=== PATIENT | female | born 1985 | race Caucasian/White ===

== ENCOUNTER 2019-08-31 11:42 | Emergency (ER) | payer OTHER, SELFPAY ==
[2019-08-31 12:10] VITALS: BP 125/83; PULSE 70; RESP 20; TEMP 36.7; O2SAT 100
--- NOTE | 2019-08-31 13:21 | ED.GENADULT ---
HPI - General Adult General Chief complaint: Dental/Oral Stated complaint: tooth pain Time Seen by Provider: 08/31/19 13:22 Source: patient and RN notes reviewed Mode of arrival: ambulatory Limitations: no limitations History of Present Illness HPI narrative: 34-year-old female presents with complaints of LT lower dental pain for the past 3 days. Pain has increased over the last 24 hours with pain shooting towards LT ear. 600 mg of Ibuprofen last dose 05:00 a.m. without relief. Denies any drainage. No fever. LT jaw swelling. No neck swelling. No limitation with speaking or swallowing. Has history of dental caries. Has being seen a dentist was in the process of getting teeth removed and fitted for dentures but dentist stop taking her insurance. Salome says she is awaiting her appointment in [facility] with new dentist. No dental trauma. No oral lesions. Exacerbating factors consist of chewing on LT side, eating and drinking cold items. Relieving factors not eating. No dentures or bridges. Denies fever or chills. Tolerating liquids well. Salome denies being , LMP unknown due to Depo-provera injections. Some parts of this dictation were generated by voice recognition software and may contain typographical and/or grammatical inaccuracies. Related Data Home Medications Medication Instructions Recorded Confirmed bupropion HCl [Wellbutrin SR] 300 mg PO BID 07/05/19 08/31/19 lisinopril 20 mg PO DAILY 07/05/19 08/31/19 adalimumab [Humira Pen] 40 mg SUBCUT ONCE 08/31/19 08/31/19 fluoxetine 20 mg PO DAILY 08/31/19 08/31/19 folic acid 1 mg PO DAILY 08/31/19 08/31/19 medroxyprogesterone [Depo-Provera] 150 mg IM [id number] 08/31/19 08/31/19 methotrexate 2.5 mg WEEKLY 08/31/19 08/31/19 Allergies Allergy/AdvReac Type Severity Reaction Status Date / Time tramadol Allergy Severe Siezure Verified 08/31/19 12:38 Review of Systems Review of Systems: Narrative: CONSTITUTIONAL: Denies fever, chills, sweats. EYES: Denies visual changes, redness, discharge. ENT: Denies rhinorrhea, congestion, sore throat, otalgia. Complains of LT lower dental pain and LT jaw swelling. CARDIOVASCULAR: Denies chest pain, palpitations, edema. RESPIRATORY: Denies dyspnea, wheezing, cough. GASTROINTESTINAL: Denies abdominal pain, nausea, vomiting, diarrhea. GENITOURINARY: Denies dysuria, hematuria, abnormal discharge. SKIN: Denies rash or itching. MUSCULOSKELETAL: Denies acute back pain, joint pain, or myalgia. NEUROLOGIC: Denies numbness or focal weakness. PSYCHIATRIC: Denies anxiety or depression. All systems reviewed & are unremarkable except as noted in HPI and below. [facility] Past Medical History Medical History (Updated 09/01/19 @ 00:00 by [facility] Dadonald) Anxiety Depression HTN (hypertension) Psoriasis Rheumatoid arthritis Surgical History Surgical History (Updated 08/31/19 @ 13:43 by BHAVIK Saldivar) No significant past surgical history Family History Family History Other Heart disease Hypertension Social History Social History (Updated 08/31/19 @ 13:43 by BHAVIK Saldivar) Smoking status: Current every day smoker Tobacco type: cigarettes Alcohol intake: never Substance use: never Living arrangements: with family Gender identity (if verbalized by the patient): Female Comments At time of signature, agree with nurse past medical, surgical, social, and family history. There is no relevant family history pertinent to the presenting complaint. Exam Narrative: Exam Narrative: GENERAL: This is a well-nourished, well-developed patient, in no apparent distress. Talks in full sentences ans ambulates with steady gait without dyspnea. HEAD: normocephalic, atraumatic. EYES: PERRL. Sclera clear/white. Vision is grossly intact. EARS: External ears normal, auditory canals clear and without drainage, TMs normal without perforation. Hearing gr
== END 2019-08-31 13:45 | disposition home or self-care (01) ==
PROVIDERS: Emergency Provider Nurse Practitioner Family
DX: K08.89 Other specified disorders of teeth and supporting structures (principal); K02.9 Dental caries, unspecified; F17.210 Nicotine dependence, cigarettes, uncomplicated; I10 Essential (primary) hypertension; M06.9 Rheumatoid arthritis, unspecified; F41.9 Anxiety disorder, unspecified; F32.9 Major depressive disorder, single episode, unspecified
CPT/HCPCS: 99213; G0463

== ENCOUNTER 2020-02-10 17:23 | Emergency (ER) | payer OTHER, SELFPAY ==
[2020-02-10 17:56] VITALS: BP 163/101; PULSE 61; RESP 22; TEMP 36.1; O2SAT 100
--- NOTE | 2020-02-10 18:01 | ED.GENADULT ---
HPI - General Adult General Chief complaint: Dental/Oral Stated complaint: Tooth Time Seen by Provider: 02/10/20 18:07 Source: patient Mode of arrival: ambulatory Limitations: no limitations History of Present Illness HPI narrative: 34-year-old female patient presents to the [facility] with complaints of frontal dental pain that has been bothering her significantly for the past 4 days and is gotten increasingly worse today. Patient states that she had a calcium deficiency when she was and states that after she gave she started having her teeth fall out. Patient states that she was in the process of having all of her teeth pulled and had dentures placed when COVID started. Patient states that the front tooth on the right side is really been bothering her causing a lot of pain. Patient states she is tried Orajel as well as [id number] Tylenol and ibuprofen without success. Patient states she has tried to get into the [employer] [facility] however they advised her to call back on Sunday for that is when they take emergency appointments. Related Data Home Medications Medication Instructions Recorded Confirmed bupropion HCl [Wellbutrin SR] 300 mg PO BID 07/05/19 02/10/20 lisinopril 20 mg PO DAILY 07/05/19 02/10/20 adalimumab [Humira Pen] 40 mg SUBCUT ONCE 08/31/19 02/10/20 fluoxetine 20 mg PO DAILY 08/31/19 02/10/20 folic acid 1 mg PO DAILY 08/31/19 02/10/20 medroxyprogesterone [Depo-Provera] 150 mg IM [id number] 08/31/19 02/10/20 methotrexate 2.5 mg WEEKLY 08/31/19 08/31/19 Allergies Allergy/AdvReac Type Severity Reaction Status Date / Time tramadol Allergy Severe Siezure Verified 02/10/20 17:52 Review of Systems Review of Systems: Narrative: CONSTITUTIONAL: Denies fever, chills, or sweats. EYES: Denies visual changes, redness, or discharge. ENT: Denies rhinorrhea, congestion, sore throat, or otalgia. Positive frontal dental pain x4 days CARDIOVASCULAR: Denies chest pain, palpitations, or edema. RESPIRATORY: Denies cough or dyspnea. GASTROINTESTINAL: Denies abdominal pain, nausea, vomiting, or diarrhea. GENITOURINARY: Denies dysuria or hematuria. SKIN: Denies rash or itching. MUSCULOSKELETAL: Denies back pain, joint pain, or myalgia. NEUROLOGIC: Denies headache, numbness, or weakness. PSYCHIATRIC: Denies anxiety or depression. [facility] Past Medical History Medical History Anxiety Depression HTN (hypertension) Psoriasis Rheumatoid arthritis Surgical History Surgical History No significant past surgical history Family History Family History Other Heart disease Hypertension Social History Social History Smoking status: Current every day smoker Tobacco type: cigarettes Alcohol intake: never Substance use: never Gender identity (if verbalized by the patient): Female Comments At the time of my signature I agree with nursing past medical history, surgical, social, and family history. There is no relevant family history pertinent to the presenting complaint. Exam Narrative: Exam Narrative: GENERAL: Well-appearing, well-nourished, and in no acute distress. HEAD: Normocephalic, atraumatic. EYES: PERRLA and EOMI. ENT: Nares clear, no rhinorrhea or epistaxis. Mucous membranes moist. Patient has multiple broken teeth noted throughout the mouth with both teeth in the front broken and significant swelling and erythema around the right frontal tooth. No obvious abscess noted at this time. NECK: Supple. No lymphadenopathy CHEST: Clear to auscultation. No respiratory distress. HEART: Regular rate and rhythm. No murmur heard. Normal peripheral pulses. ABDOMEN: Soft, nontender, nondistended, normal active bowel sounds. EXTREMITIES: Normal range of motion. No edema. SKIN
== END 2020-02-10 18:16 | disposition home or self-care (01) ==
PROVIDERS: Emergency Provider Nurse Practitioner Family
DX: K02.9 Dental caries, unspecified (principal); F41.9 Anxiety disorder, unspecified; F32.9 Major depressive disorder, single episode, unspecified; I10 Essential (primary) hypertension; F17.200 Nicotine dependence, unspecified, uncomplicated
CPT/HCPCS: 99213; G0463

== ENCOUNTER 2020-07-08 16:23 | Emergency (ER) | payer OTHER, SELFPAY ==
--- NOTE | ~2020-07-08 | XR_ITS ---
EXAMINATION: XR chest 2V DATE: 07/08/2020 16:59 INDICATION: Fever and cough TECHNIQUE: PA and lateral views of the chest are obtained. COMPARISON: None available FINDINGS: The lungs are free of acute opacities. There is no pleural effusion or pneumothorax. The ca rdiomediastinal silhouette is normal. There is mild thoracic spondylosis. IMPRESSION: 1. No acute cardiopulmonary abnormality. Reviewed, dictated and finalized at location A. NTORY CONTROL MANAGER
[2020-07-08 16:35] VITALS: BP 157/108; PULSE 87; RESP 32; TEMP 38.4; O2SAT 94
--- NOTE | 2020-07-08 17:05 | ED.URI ---
HPI - URI/Sore Throat General Chief Complaint: Upper Respiratory Infection Stated Complaint: sore throat cough sob Time Seen by Provider: 07/08/20 16:57 Source: patient and RN notes reviewed Mode of arrival: ambulatory Limitations: no limitations History of Present Illness HPI Narrative: Patient presents today complaining of a 2-week history of cough and shortness of breath. She was seen on June 24 at [facility] ER where chest x-ray was performed and she was diagnosed with a viral chest infection and discharged home with a 5-day course of prednisone. States a Covid test at that time was negative. Reports that while she was taking the prednisone her symptoms improved, but since 1224 her symptoms have significantly worsened. She has started wheezing severely and cannot catch her breath. Denies fever at home, but was 101.1 upon presentation at urgent care today. Reports her cough is productive with thick green sputum. States she has been using an albuterol inhaler that is not helping. Denies history of asthma or COPD. She is a smoker, but states she has not been able to smoke for approximately 1 week due to severe shortness of breath. MD elicited complaint: cough and other (Shortness of breath) Related Data Home Medications Medication Instructions Recorded Confirmed lisinopril 20 mg PO DAILY 07/05/19 07/08/20 adalimumab [Humira Pen] 40 mg SUBCUT ONCE 08/31/19 07/08/20 Allergies Allergy/AdvReac Type Severity Reaction Status Date / Time tramadol Allergy Severe Siezure Verified 07/08/20 16:49 Review of Systems Review of Systems: Narrative: CONSTITUTIONAL: Denies body aches, fever, chills, or sweats. EYES: Denies visual changes, redness, or discharge. ENT: Denies rhinorrhea, congestion, sore throat, or otalgia. CARDIOVASCULAR: Denies chest pain, palpitations, or edema. RESPIRATORY:+ Cough, shortness of breath, wheezing GASTROINTESTINAL: Denies abdominal pain, nausea, vomiting, or diarrhea. GENITOURINARY: Denies dysuria or hematuria. SKIN: Denies rash, itching, or wounds. MUSCULOSKELETAL: Denies back pain, joint pain, or myalgia. NEUROLOGIC: Denies headache, numbness, tingling, or weakness. PSYCH: Denies depression or anxiety. [facility] Past Medical History Medical History (Updated 07/08/20 @ 18:11 by Shellie Hernandez, BHAVIK, ) Anxiety Depression HTN (hypertension) Psoriasis Rheumatoid arthritis Surgical History Surgical History No significant past surgical history Family History Family History Other Heart disease Hypertension Social History Social History Smoking status: Current every day smoker Tobacco type: cigarettes Alcohol intake: never Substance use: never Gender identity (if verbalized by the patient): Female Comments At time of signature, I have reviewed and agree with nursing past medical, surgical, social and family history unless otherwise noted. Please see nursing chart for further information. There is no relevant family history pertinent to the presenting complaint Exam Narrative: Exam Narrative: GENERAL: Ill-appearing, well-nourished. HEAD: Normocephalic, atraumatic. EYES: EOMI. No redness or drainage. Conjunctivae normal. ENT: Mucous membranes pink and moist. Nares clear. No rhinorrhea. TMs normal bilaterally. Throat normal. Uvula midline. NECK: Normal AROM. Supple. No lymphadenopathy. CHEST: Inspiratory and expiratory wheezing. Unable to speak in complete sentences. Labored. Diminished in the bases. HEART: Regular rate and rhythm. No murmur appreciated. Normal peripheral pulses. MUSCULOSKELETAL: No bony tenderness. EXTREMITIES: Normal range of motion. No edema. SKIN: Warm, dry, no rash. Capillary refill normal. Normal skin turgor. NEURO: No focal deficits. Alert and oriented x3. Gait st
[2020-07-08] MEDS: ALBUTEROL SULFATE NEB 2.5 MG/3 ML INH INHALATION (17:16)
[2020-07-08] MEDS: IPRATROPIUM BR 0.02% INH SOLN 0.5 MG/2.5 ML VIAL INHALATION (17:16)
[2020-07-08 17:55] VITALS: BP 157/98; PULSE 99; RESP 24; TEMP 36.7; O2SAT 95
== END 2020-07-08 18:28 | disposition home or self-care (01) ==
PROVIDERS: Emergency Provider Nurse Practitioner
DX: J40 Bronchitis, not specified as acute or chronic (principal); F17.210 Nicotine dependence, cigarettes, uncomplicated; I10 Essential (primary) hypertension; M06.9 Rheumatoid arthritis, unspecified
CPT/HCPCS: 71046; 87081; 87804; 87880; 99213; G0463

== ENCOUNTER 2022-06-20 13:45 | Emergency (ER) | payer OTHER, SELFPAY ==
[2022-06-20 13:53] VITALS: BP 150/97; PULSE 72; RESP 16; TEMP 37.2; O2SAT 98
--- NOTE | 2022-06-20 14:56 | ED.URI ---
HPI - URI/Sore Throat General Chief Complaint: Upper Respiratory Infection Stated Complaint: Cough/Shortness of Breath Time Seen by Provider: 06/20/22 14:50 Source: patient, RN notes reviewed and old records reviewed Mode of arrival: ambulatory Limitations: no limitations History of Present Illness HPI Narrative: 37-year-old female who presents [facility] presents complaints of shortness of breath the past 2 days. Patient reports her 9-year-old child had the flu last week and she started with symptoms day after he did which included nausea, vomiting, fever, runny nose, headaches and body aches which lasted 3 days. Patient states she continues to have cough some shortness of breath, states it is hard to breathe coughing up greenish thick phlegm MD elicited complaint: cough, sore throat and other (thick phlegm and shortness of breath) Onset (ago): day(s) (6 days with increased shortness of breath past 2 days) Pain scale (0-10): 2 Description of mucous: green Able to tolerate fluids by mouth: Yes Treatments prior to arrival: acetaminophen and cold medicine Related Data Allergies Allergy/AdvReac Type Severity Reaction Status Date / Time tramadol Allergy Severe Siezure Verified 07/08/20 16:49 Review of Systems Review of Systems: CONSTITUTIONAL:Reports malaise, chills, sweats, or fever. EYES: Denies visual changes, redness, or discharge. ENT: Reports rhinorrhea, congestion, sinus pain, no otalgia, positive for sore throat. CARDIOVASCULAR: Denies chest pain, palpitations, or edema. RESPIRATORY: Reports cough.? Reports some dyspnea. GASTROINTESTINAL: Denies abdominal pain, nausea, vomiting, diarrhea SKIN: Denies rash or itching. MUSCULOSKELETAL: Reports myalgia. NEUROLOGIC: Reports headache. All systems reviewed & are unremarkable except as noted in HPI and below PMFSH Past Medical History Medical History (Updated 06/21/22 @ 00:00 by Violetta Guzman) Anxiety Depression HTN (hypertension) Psoriasis Rheumatoid arthritis Surgical History Surgical History No significant past surgical history Family History Family History Other Heart disease Hypertension Social History Social History (Updated 06/29/22 @ 20:20 by Roxy Almendarez NP) Smoking packs per day: 0.5 Smoking cigarettes per day: 10.0 Smoking status: Current every day smoker Tobacco type: cigarettes Alcohol intake: never Substance use: never Gender identity (if verbalized by the patient): Female Comments At time of signature, agree with nursing past medical, surgical, social and family history. There is no relevant family history pertinent to the presenting complaint Exam Narrative: GENERAL: Well-appearing, well-nourished, and in no acute distress. HEAD: Normocephalic EYES: PERRLA, conjunctivae clear ENT: Nares clear, turbinates edematous and erythematous, clear discharge. Mucous membranes moist. TM pearly muro with dull light reflex bilaterally; no tragal tenderness. Oropharynx erythematous without lesions. Tonsils not enlarged and without exudate, no drooling, no hoarseness, no trismus, uvula midline PND. NECK: Supple. No lymphadenopathy CHEST: scattered wheezes to auscultation, breath sounds equal. scattered wheezing, no rhonchi, rales, or stridor. No respiratory distress, speaks in full sentences. productive cough greenish tinged phlegm,SAO2 98% on room air HEART: Regular rate and rhythm. No murmur heard. SKIN: Warm, dry, no rash. NEURO: Alert and oriented x3. PSYCH: Normal mood and affect Course Course Emergency Course: Patient is aware of diagnosis, understands and agrees to treatment plan.? Anticipatory guidance given.? Patient agrees to follow-up as directed and is aware of reasons to seek care at the emergency department. Portions of this record may have been created with voice rec
== END 2022-06-20 15:11 | disposition home or self-care (01) ==
PROVIDERS: Emergency Provider Registered Nurse; PCP Nurse Practitioner Family
DX: J40 Bronchitis, not specified as acute or chronic (principal); I10 Essential (primary) hypertension; M06.9 Rheumatoid arthritis, unspecified; L40.9 Psoriasis, unspecified; F17.210 Nicotine dependence, cigarettes, uncomplicated
CPT/HCPCS: 99213; G0463

== ENCOUNTER 2025-03-18 18:13 | Emergency (ER) | payer OTHER, SELFPAY ==
--- OUTSIDE RECORDS SUMMARY | 2025-03-18 18:15 | XMS_ITS | Clinical Summary ---
Author Organization [facility] Address [address] [place] [address] Care Team Providers Care Certified Procedural Coder Name Role Phone Dom Jolley MD Primary Care Provider [phone] Allergies Active Allergy Reactions Criticality Noted Date Comments Tramadol Other (See comments),Seizures High Reaction: SEIZURES, Medications naloxone (NARCAN) 4 mg/actuation spray,non-aeros ol Narcan 4 mg/actuation nasal spray Active methadone HCl (METHADONE ORAL) Take 250 mg by mouth assembler brazer before breakfast Keila Fan Counselor: Radhames 5 Active folic acid (FOLVITE) 1 mg tablet Take 1 tablet (1 mg total) by mouth daily 30 tablet 5 9 Active Additional Information Patient not taking.Reported on 08/28/2023 buPROPion SR (ZYBAN) 150 mg 12 hr tablet Take 1 tablet (150 mg total) by mouth 2 (two) times a day 180 tablet 3 Active Additional Information Patient not taking.Reported on 08/28/2023 Active Problems Problem Noted Date Diagnosed Date Class 3 severe obesity due t o excess calories without serious comorbidity with body mass index (BMI) of 50.0 to 59.9 in adult 04/19/2023 Assessment & Plan (08/28/2023 9:13 AM SALES ADMINISTRATION SPECIALIST): Given their past success the patient would be a good candidate for weight loss surgery. We have gone over options such as the bypass and sleeve gastrectomy. We have also discussed risks and benefits such as blood clots, staple line leak as well as new or worsening reflux symptoms. They are in understanding. During this time will have them seen by the dietitian and psych. As we get closer to the time of surgery we will set him up for an EGD to look for hiatal hernia, H pylori or other gastric pathology. We will see them back in 4 weeks. They are in understanding of the plan. We have gone over small frequent meals shooting for a goal calorie intake of around 1600 spread throughout 4-5 meals. We have discussed not eating late at night. We have discussed cardiovascular exercise. Greater than 15 minutes was spent in counseling the patient on diet and exercise with regards to her morbid obesity. Assessment & Plan (04/19/2023 12:33 PM CDT): Wt Readings from Last 3 Encounters: 04/19/23 133.1 kg (293 lb 8 oz) 09/21/22 127 kg (280 lb) 01/02/21 119.3 kg (263 lb) BMI Readings from Last 3 Encounters: 04/19/23 51.23 kg/m 09/21/22 49.60 kg/m 01/02/21 46.59 kg/m Not at goal of bmi <30 Continue diet and exercise BMI Follow-up includes: nutrition counseling and exercise counseling. Chronic acquired lymphedema 04/19/2023 Overview (04/19/2023): worsening sx recomend compression and elevation referral to PT for evaluation recommend weight loss Morbid obesity with BMI of 50.0-59.9, adult 04/08 Assessment & Plan (04/19/2023 12:33 PM CDT): Wt Readings from Last 3 Encounters: 04/19/23 133.1 kg (293 lb 8 oz) 09/21/22 127 kg (280 lb) 01/02/21 119.3 kg (263 lb) BMI Readings from Last 3 Encounters: 04/19/23 51.23 kg/m 09/21/22 49.60 kg/m 01/02/21 46.59 kg/m Not at goal of bmi <30 Continue diet and exercise BMI Follow-up includes: nutrition counseling and exercise counseling. No improvement so far as per davin - she has been dieting and exercising x 3 months Recommend eval by nbutrition Referral to bariatric surg Start wellbutrin as it may provide some help Psoriatic arthritis 09/13/2018 Bilateral sacroiliitis 09/13/2018 Resolved Problems Problem Noted Date Diagnosed Date Resolved Date BMI 50.0-59.9, adult 09/13/2018 023 Encounter for medication monitoring 09/13/2018 04/19/2023 Immunizations Immunization Administration Dates Next Due INFLUENZA [id number] 07/09/2013 Influenza, Quadrivalent, Spl it, Preservative Free, Intramuscular 05/21/2018 Influenza, Unspecified 04/19/2023,04/19/2022 Medical History Medical History Date Comments Hx Other Medical Headache, migra ine Hypertension Hypertension Seizure disorder (HCC) Seizure d isorder Psoriasis Osteoporosis Seizure (HCC) Anxiety Depression RA (rheumatoid arthritis) Family History Medical History Relation Name Comments ADD / ADHD Brother Depression Brother Diabetes Brother Hypertension Brother Migraines Brother Psoriasis Brother Cancer Father Hypertension Father Lung cancer Father Migraines Father Stroke Father tumor Father Psoriasis Maternal Grandmother ADD / ADHD Mother Cancer Mother Depression Mother Diabetes Mother Heart disease Mother Hypertension Mother tumor Mother Diabetes Other 1 Family history of Diabetes mellitus; Heart disease Other 2 Family history of Heart disease; Hypertension Other 3 Family history of Hypertension; ADD / ADHD Sister Depression Sister Hypertension Sister Psoriasis Sister thyroid gland Sister Relation Name Status Comments Brother Father Maternal Grandmother Mother Alive Other 1 Other 2 Other 3 Sister Social History Tobacco Use Types Packs/Day Years Used Date Smoking Tobacco: Some Days Cigarettes Smokeless Tobacco: Never Tobacco Cessation:Ready to Q uit: Not Asked; Counseling Given: Not Answered Alcohol Use Standard Drinks/Week Comments Yes 0 (1 standard drink = 0.6 oz pur e alcohol) PHQ-2 Answer Date Recorded PHQ-2 Total Score (If total score is 3 or more points, staff should administer the PHQ-9) 3 04/19/2023 Personal Safety Answer Date Recorded Have you ever been in or are you currently in a harmful physical or emotional relationship or is someone making you feel afraid or unsafe? 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 Not on file Not on file Not on file Obstetrics History Last Filed Vital Signs Vital Sign Reading Time Taken Comments Blood Pressure 143/97 08/28/2023 8:32 AM SALES ADMINISTRATION SPECIALIST Pulse 83 08/28/2023 8:32 AM SALES ADMINISTRATION SPECIALIST Temperature 36.2 C (97.1 F) 08/28/2023 8:32 AM SALES ADMINISTRATION SPECIALIST Respiratory Rate 16 04/19/2023 11:3 0 AM CDT Oxygen Saturation 99% 08/28/2023 8:32 AM SALES ADMINISTRATION SPECIALIST Inhaled Oxygen Concentration - - Weight 126.5 kg (278 lb 14.4 oz) 08/28/2023 8:32 AM SALES ADMINISTRATION SPECIALIST Height 160 cm (5' 3) 08/28/2023 8:32 AM SALES ADMINISTRATION SPECIALIST Body Mass Index 49.4 08/28/2023 8:32 AM SALES ADMINISTRATION SPECIALIST Plan of Treatment Health Maintenance Due Date Last Done Comments Breast Cancer Screening-Mammogram 1983 Cervical Cancer Screening 1983 DTaP/Tdap/Td Vaccine (1 - Tdap) 1994 Varicella Vaccines (1 of 2 - 13+ 2-dose series) 1996 Hepatitis B Screening 2001 Regular Well Visit/Exam 18-64 2001 Pneumococcal vaccine <65 (1 of 2 - PCV) 2002 HPV Vaccines (1 - 3-dose SCD M series) 2010 Depression Screening 04/19/2024 04/19/2023 Influenza Vaccine (#1) 2025 , 04/19/2022, 05/21/2018, Additional history exists Hepatitis C Screening Completed 05/21/2018 Procedures Procedure Name Priority Date/Time Associated Diagnosis Comments HEPATITIS C ANTIBODY Routine 05/21/2018 9:39 AM SALES ADMINISTRATION SPECIALIST Psoriatic arthritis (HCC) Encounter for long-term (current) use of medications Encounter for medication monitoring Morbid obesity with BMI of 40.0-44.9, adult (HCC) from Last 3 Months or Most Recently Relevant to Health Maintenance Results * Hepatitis C antibody (05/21/2018 9:39 AM SALES ADMINISTRATION SPECIALIST) Hep C Ab Non-Reactiv e Non-Reactiv e [facility] Blood specimen (specimen) 05/21/2018 9:39 AM SALES ADMINISTRATION SPECIALIST 05/21/2018 12:56 PM SALES ADMINISTRATION SPECIALIST Narrative [facility] - 05/21/2018 2:00 PM SALES ADMINISTRATION SPECIALIST Ling Gracia MD LAB MICROBIOLOGY - GENERAL ORDERABLES Final Result [facility] [address] [place] [address] from Last 3 Months or Most Recently Relevant to Health Maintenance Insurance [facility] Care Teams Certified Procedural Coder Relationship Specialty Start Date End Date Dom Jolley MD [address] [facility] [address] [place] [address] [place] [address] PCP - General Family Medicine 04/19/23
--- OUTSIDE RECORDS SUMMARY | 2025-03-18 18:15 | XMS_ITS | Clinical Summary ---
Author Organization [facility] Address [address] [place] [address] Phone Care Team Providers Care Windscreen Fitter Name Role Phone Dorcas, Svetlana Chau APRN, CNP Primary Care Provider Allergies Active Allergy Reactions Criticality Noted Date Comments Tramadol Other (see Comments) 01/12/2020 seizures Medications busPIRone HCl (BUSPAR PO) Take by mouth. Active LISINOPRIL PO Take by mouth. Active clonazePAM (KLONOPIN PO) Take by mouth. Active ketorolac (TORADOL) 10 MG Tablet Take 1 Tablet by mouth every 6 hours as needed for Moderate or more severe pain. 12 Tablet 2 Active tamsulosin (FLOMAX) 0.4 MG Capsule TAKE TABLET AT BEDTIME TO HELP PASS KIDNEY STONE. 10 Capsule 2 Active ondansetron (ZOFRAN-ODT) 4 MG TABLET DISPERSIBLE Take 1 Tablet by mouth every 8 hours as needed for Nausea - 1st line. 10 Tablet 2 Active HYDROcodone-acet aminophen (NORCO) 5-325 MG TabletIndication s:Renal colic on right side Take 1-2 Tablets by mouth every 4 hours as needed for Moderate or more severe pain. 7 Tablet 2 Active Social History Tobacco Use Types Packs/Day Years Used Date Smoking Tobacco: Every Day Smokeless Tobacco: Never Alcohol Use Standard Drinks/Week Comments Never 0 (1 standard drink = 0.6 oz pur e alcohol) AUDIT-C Answer Date Recorded Q1: How often do you have a drink containing alc ohol? Never 01/12/2020 Average Number of Drinks Not on file 020 Frequency of Binge Drinking Not on file 12/2019 Comments Unknown Sex and Gender Information Value Date Recorded Sex Assigned at Not on file Legal Sex Female 9:31 PM CDT Gender Identity Not on file Sexual Orientation Not on file Last Filed Vital Signs Vital Sign Reading Time Taken Comments Blood Pressure 183/106 09/06/2022 1:15 AM GRAIN FARMER Pulse 83 09/06/2022 1:25 AM GRAIN FARMER Temperature 37.4 C (99.4 F) 09/05/2022 11:36 PM GRAIN FARMER Respiratory Rate 15 09/06/2022 1:25 AM GRAIN FARMER Oxygen Saturation 100% 09/06/2022 1:25 AM GRAIN FARMER Inhaled Oxygen Concentration - - Weight 127 kg (280 lb) 09/05/2022 11:36 PM GRAIN FARMER Height 160 cm (5' 3) 09/05/2022 11:36 PM GRAIN FARMER Body Mass Index 49.6 09/05/2022 11:36 PM GRAIN FARMER Plan of Treatment Health Maintenance Due Date Last Done Comments Hepatitis C Virus (HCV) Screening 1983 TdaP Immunization 1983 Hepatitis B Immunization (1 of 3 - 19+ 3-dose series) 2002 Pap Smear 2004 Human Papillomavirus (HPV) Immunization (1 - 3-dose SCDM series) 2010 Cervical Cancer Screening (CCS) 2013 HPV/Cotest 2013 Influenza Immunization (#1) 2025 05/21/2018 SARS-COV-2 Immunization ( season) 2025 Respiratory Syncytial Virus (RSV) Immunization (Adult) (1 - 1-dose 75+ series) 2058 Meningococcal Immunization (ACWY) Aged Out No longer eligible based on patient's age to complete this topic Pneumococcal Immunization Combined Aged Out No longer eligible based on patient's age to complete this topic Rotavirus Immunization Aged Out No lo nger eligible based on patient's age to complete this topic Insurance MEDICAID [employer] Care Teams Windscreen Fitter Relationship Specialty Start Date End Date Svetlana Toscano APRN, INTERPERSONAL COMMUNICATIONS PROFESSOR [address] [place] [address] PCP - General Advanced Practice Nurse 01/12/20
[2025-03-18 18:17] VITALS: BP 174/112; PULSE 80; RESP 18; TEMP 35.9; O2SAT 100
--- OUTSIDE RECORDS SUMMARY | 2025-03-18 18:17 | XMS_ITS | Clinical Summary ---
Author Organization [facility] Address [address] [place] [address] Care Team Providers Care Knife Setter Assembler Name Role Phone Dom Jolley MD Primary Care Provider [phone] Source Comments [facility],non-owned Affiliates and Associated Physician Practices is amultiple site organization consisting of ambulatory clinics and hospital sitesin [place] and [place]. This disclosure is being madepursuant to the Care Everywhere program and may not contain all information available regarding this patient. Last updated 18.[facility] Allergies Active Allergy Reactions Criticality Noted Date Comments Tramadol Seizures High 08/12/2020 Medications * Be aware that medications may not be up to date on this document. Alwaysverify current medications with the patient. LISINOPRIL PO Active Escitalopram Oxalate (LEXAPRO PO) Active CLONAZEPAM PO Active clonazePAM (KLONOPIN) 0.125 MG TABS tablet Active lisinopril (PRINIVIL; ZESTRIL) 10 MG tablet TAKE 1 TABLET(S) EVERY DAY BY ORAL ROUTE FOR 30 DAYS. 9 Active methotrexate 2.5 MG tabletIndicati ons:Psoriatic Arthritis Take 6 (six) tablets by mouth every 7 days Reasons: Psoriasis associated with Arthritis 24 tablet 3 1 Active folic acid (FOLVITE) 1 MG tablet Take 1 (one) tablet by mouth once daily 90 tablet 4 1 Active meloxicam (MOBIC) 15 MG tablet Take 1 (one) tablet by mouth once daily 30 tablet 2 1 Active vitamin D, ergocalciferol , (DRISDOL) 1.25 MG (91968 UT) capsuleIndicat ions:Vitamin D Deficiency Take 1 (one) capsule by mouth every 7 days Reasons: Vitamin D Deficiency 12 capsule 1 Active adalimumab (HUMIRA) 40 MG/0.4ML injection Inject 0.4 mL subcutaneously every 14 days 6 Pen 2 1 Active Active Problems Problem Noted Date Diagnosed Date Supervision of other high-risk 013 Overview (05/16/2015): O+/I/-/-, HIV nr [id number] Positive UDS 12/27/2012 Overview (12/27/2012): 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 Never 08/12/2020 Average Number of Drinks Not on file 021 Frequency of Binge Drinking Not on file 10/2020 Comments No Sex and Gender Information Value Date Recorded Sex Assigned at Not on file Legal Sex Female 9:42 AM CDT Gender Identity Not on file Sexual Orientation Not on file Last Filed Vital Signs Vital Sign Reading Time Taken Comments Blood Pressure 160/110 08/12/2020 11:27 AM ELEMENT WINDING MACHINE TENDER Pulse - - Temperature 36.6 C (97.8 F) 08/12/2020 11:27 AM ELEMENT WINDING MACHINE TENDER Respiratory Rate - - Oxygen Saturation - - Inhaled Oxygen Concentration - - Weight 121.7 kg (268 lb 4 oz) 08/12/2020 11:27 A M ELEMENT WINDING MACHINE TENDER Height 160 cm (5' 3) 08/12/2020 11:27 AM ELEMENT WINDING MACHINE TENDER Body Mass Index 47.52 08/12/2020 11:27 AM ELEMENT WINDING MACHINE TENDER Plan of Treatment Health Maintenance Due Date Last Done Comments LIPID TESTING 1983 MAMMOGRAM 1983 HIV SCREENING 1998 DTAP/TDAP/TD VACCINES (1 - Tdap) 2002 HEPATITIS B VACCINE (1 of 3 - 19+ 3-dose series) 2002 PNEUMOCOCCAL VACCINE (1 of 2 - PCV) 2002 PAP SMEAR 2004 HPV VACCINE (1 - 3-dose SCDM series) 2010 DEPRESSION SCREENING 07/09/2024 COVID-19 VACCINE (1 - 2023-2 5 season) 2025 INFLUENZA VACCINE (#1) 2025 05/21/2018 ZOSTER VACCINE (1 of 2) 2033 HEPATITIS C SCREENING Completed 08/12/2020 HIB VACCINE Aged Out No longer eligi ble based on patient's age to complete this topic MENINGOCOCCAL (Group B) VACC INE SHARED DECISION-MAKING Aged Out No longer eligibl e based on patient's age to complete this topic MENINGOCOCCAL GROUPS A/C/Y/W VACCINE Aged Out No longer eligible b ased on patient's age to complete this topic Procedures Procedure Name Priority Date/Time Associated Diagnosis Comments HEPATITIS C AB SCREEN RFLX NAAT QUANT Routine 08/12/2020 12:44 PM ELEMENT WINDING MACHINE TENDER Psoriatic arthritis from Last 3 Months or Most Recently Relevant to Health Maintenance Results * HEPATITIS C AB SCREEN RFLX NAAT QUANT (08/12/2020 12:44 PM ELEMENT WINDING MACHINE TENDER) Hepatitis C Antibody Non-react peter Non-reac tive 08/12/2020 2:49 PM ELEMENT WINDING MACHINE TENDER [facility] Comment:Hepatitis C Antibody screen indicates no serologic evidence of past or current infection with Hepatitis C Virus. Patients with unexplained liver disease who are immunocompromised or suspected of having acute Hepatitis C infection may benefit from Nucleic Acid Test (MICHAEL) for Hepatitis C Viral RNA to confirm Hepatitis C status. Blood BLOOD SPECIMEN / Unknown Lab Venipuncture / Unknown 08/12/2020 12:44 PM ELEMENT WINDING MACHINE TENDER 08/12/2020 2:04 PM ELEMENT WINDING MACHINE TENDER Nancy Guillory MD LAB - CHEMISTRY ORDERABLES nal Result [facility] [address] [place] [address], [facility] [phone] from Last 3 Months or Most Recently Relevant to Health Maintenance Insurance Care Teams Knife Setter Assembler Relationship Specialty Start Date End Date Dom Jolley MD [address] [place] [address] [place] [id number] PCP - General Hospitalist 11/05/23
--- NOTE | 2025-03-18 18:20 | ED.FEMALEGU ---
HPI - Female Genitourinary General Chief complaint: Urogenital-Female Stated complaint: Urinary Problem Source: patient and RN notes reviewed Mode of arrival: ambulatory Limitations: no limitations History of Present Illness HPI Narrative: 40 y/o female presented for c/o burning with urination and urinary frequency. Onset 4 days. Took AZO. Denies hematuria, nausea, vomiting, abdominal pain, flank pain, constipation, diarrhea, fevers or chills. Related Data Allergies Allergy/AdvReac Type Severity Reaction Status Date / Time tramadol Allergy Severe Siezure Verified 07/08/20 16:49 Review of Systems Review of Systems: CONSTITUTIONAL: Denies body aches, fever, chills, or sweats. CARDIOVASCULAR: Denies chest pain, palpitations, or edema. RESPIRATORY: Denies cough or dyspnea. GASTROINTESTINAL: Denies abdominal pain, nausea, vomiting, or diarrhea. GENITOURINARY: Reports dysuria, frequency, denies urgency, hematuria, flank pain, discharge SKIN: Denies rash, itching, or wounds. MUSCULOSKELETAL: Denies back pain or myalgia. [facility] Past Medical History Medical History (Updated 03/18/25 @ 18:44 by Adali Bermudez APRN) Anxiety Depression Psoriasis Rheumatoid arthritis HTN (hypertension) Surgical History Surgical History No significant past surgical history Family History Family History Other Heart disease Hypertension Social History Social History (Updated 06/29/22 @ 20:20 by Roxy Almendarez NP) Smoking packs per day: 0.5 Smoking cigarettes per day: 10.0 Smoking status: Current every day smoker Tobacco type: cigarettes Alcohol intake: never Substance use: never Living arrangements: with family Gender identity (if verbalized by the patient): Female Comments At time of signature, I have reviewed and agree with nursing past medical, surgical, social and family history unless otherwise noted. Please see nursing chart for further information. There is no relevant family history pertinent to the presenting complaint Exam Narrative: GENERAL: Well-appearing and in no acute distress. ENT: Mucous membranes pink and moist. NECK: Normal AROM. Supple. CHEST: No respiratory distress. Clear to auscultation. HEART: Regular rate and rhythm. ABDOMEN: Soft, nontender, nondistended, normal active bowel sounds. No CVA tenderness SKIN: Warm, dry, no rash. NEURO: No focal deficits. Alert and oriented x3. Gait steady. PSYCH: Normal affect. Course Course Emergency Course: Patient is aware of diagnosis, understands and agrees to treatment plan. Anticipatory guidance given. Patient agrees to follow-up as directed and is aware of reasons to seek care at the emergency department. Portions of this record may have been created with voice recognition software Level of Care: Express Care Visit Vital Signs Vital signs: Vital Signs Temperature 96.6 F L 03/18/25 18:17 Pulse Rate 80 03/18/25 18:17 Respiratory Rate 18 03/18/25 18:17 Blood Pressure 174/112 H 03/18/25 18:17 Pulse Oximetry 100 03/18/25 18:17 Oxygen Delivery Room Air 03/18/25 18:17 Temperature 96.6 F L 03/18/25 18:17 Pulse Rate 80 03/18/25 18:17 Respiratory Rate 18 03/18/25 18:17 Blood Pressure 174/112 H 03/18/25 18:17 Pulse Oximetry 100 03/18/25 18:17 Oxygen Delivery Room Air 03/18/25 18:17 Reviewed MDM - Female Genitourinary MDM Narrative Medical decision making narrative: Discussed physical exam findings and urine dip, Advised supportive measures and signs/symptoms to go to the ER. Pt is appropriate for outpt treatment and f/u. Differential Diagnosis Differential diagnosis: Likely urinary tract infection, vaginitis and cystitis Discharge Plan Discharge Clinical Impression: Urinary tract infection Qualifiers: Urinary tract infection type: acute cystitis Hematuria presence: with hematuria Qualified Code(s): N30.01 - Acute cystitis with hematuria Patient Disposition: Home Condition: Stable Instructions: Antibiotic Form, Urinary Tract Infection in Women (ED) Additional Instructions: Your blood pressure reading was elevated (above 120/80) Take blood pressure medication as directed. please follow-up with your primary care provider for further evaluation and management. If you develop worsening Blood Pressure symptoms, (headache, vision changes, dizziness, vomiting, chest pain, etc) go to the ER. Call 911. Take the antibiotic as prescribed The urine will be sent of for a culture to identify what type of bacteria is causing your infection. If the culture shows that the antibiotic will not get rid of your infection, you will be notified and a new antibiotic will be called in for you. Increase water intake you will need to follow up with your PCP, call to schedule an appointment. Go to the ER for any worsening symptoms or concerns Patient Language: Frisian Prescriptions: New nitrofurantoin monohyd/m-cryst [Macrobid] 100 mg capsule 100 mg PO Q12H 5 Days Qty: 10 0RF Rx Instructions: must administer with a meal/food No Action albuterol sulfate 90 mcg/actuation HFA aerosol inhaler 2 puff inhalation QID PRN (Reason: shortness of breath or wheezing) Qty: 6.7 0RF Rx Instructions: whatever is covered with insurance plan albuterol sulfate 2.5 mg /3 mL (0.083 %) solution for nebulization 2.5 mg inhalation Q4H PRN (Reason: shortness of breath or wheezing) Qty: 90 0RF Follow-up/Referrals: Dorcas,BHAVIK Mota [Primary Care Provider, Unknown] Time of Disposition: 18:34
[2025-03-18 18:31] LABS: EDUAAPPEAR Cloudy; EDUABILI Negative (Negative); EDUABLOOD 2+ (Negative); EDUACOLOR1 Yellow; EDUAGLUCOSE Negative (Negative); EDUAKETONE Negative (Negative); EDUALEUKO 3+ (Negative); EDUANITRATE Positive (Negative); EDUAPH 6.0; EDUAPROTEIN 1+ (Negative); EDUASPGRAVITY 1.030; EDUAUROBILI 0.2
== END 2025-03-18 18:38 | disposition home or self-care (01) ==
PROVIDERS: Emergency Provider Nurse Practitioner Family; PCP Nurse Practitioner Family
DX: N30.01 Acute cystitis with hematuria (principal); F17.210 Nicotine dependence, cigarettes, uncomplicated; I10 Essential (primary) hypertension; M06.9 Rheumatoid arthritis, unspecified
CPT/HCPCS: 81003; 87086; 87186; 99213; G0463

== ENCOUNTER 2025-03-28 15:42 | Emergency (ER) | payer OTHER, SELFPAY ==
--- OUTSIDE RECORDS SUMMARY | 2025-03-28 15:44 | XMS_ITS | Clinical Summary ---
Author Organization [facility] Address [address] [place] [address] Phone Care Team Providers Care Plant Engineer Name Role Phone Dorcas, Svetlana Chau APRN, [...] Comments Blood Pressure 183/106 09/06/2022 1:15 AM PARKING STATION ATTENDANT Pulse 83 09/06/2022 1:25 AM PARKING STATION ATTENDANT Temperature 37.4 C (99.4 F) 09/05/2022 11:36 PM PARKING STATION ATTENDANT Respiratory Rate 15 09/06/2022 1:25 AM PARKING STATION ATTENDANT Oxygen Saturation 100% 09/06/2022 1:25 AM PARKING STATION ATTENDANT Inhaled Oxygen Concentration - - Weight 127 kg (280 lb) 09/05/2022 11:36 PM PARKING STATION ATTENDANT Height 160 cm (5' 3) 09/05/2022 11:36 PM PARKING STATION ATTENDANT Body Mass Index 49.6 09/05/2022 11:36 PM PARKING STATION ATTENDANT Plan of Treatment Health Maintenance Due Date [...] Insurance MED[employer]ID [employer] Care Teams Plant Engineer Relationship Specialty Start Date End Date Svetlana Toscano APRN, TECHNOLOGY ADMINISTRATOR [address] [place] [address] PCP - General Advanced Practice Nurse 01/12/20
--- OUTSIDE RECORDS SUMMARY | 2025-03-28 15:44 | XMS_ITS | Clinical Summary ---
Author Organization [facility] [employer] Address [address] [place] [address] Care Team Providers Care Electrophysiology Technician Name Role Phone Dom Jolley MD Primary Care Provider [phone] Source Comments [facility] [employer],non-owned Affiliates and Associated Physician Practices is amultiple site organization consisting of ambulatory clinics and hospital sitesin [place], [place], [place] and [place]. This disclosure is being madepursuant to the Care Everywhere program and may not contain all information available regarding this patient. Last updated 18.[facility] [employer] Allergies Active Allergy Reactions Criticality Noted Date [...] vitamin D, ergocalciferol , (DRISDOL) 1.25 MG (41696 UT) capsuleIndicat ions:Vitamin D Deficiency Take 1 [...] Comments Blood Pressure 160/110 08/12/2020 11:27 AM DIRECTOR OF MATH Pulse - - Temperature 36.6 C (97.8 F) 08/12/2020 11:27 AM DIRECTOR OF MATH Respiratory Rate - - Oxygen Saturation - - Inhaled Oxygen Concentration - - Weight 121.7 kg (268 lb 4 oz) 08/12/2020 11:27 A M DIRECTOR OF MATH Height 160 cm (5' 3) 08/12/2020 11:27 AM DIRECTOR OF MATH Body Mass Index 47.52 08/12/2020 11:27 AM DIRECTOR OF MATH Plan of Treatment Health Maintenance Due Date [...] RFLX NAAT QUANT Routine 08/12/2020 12:44 PM DIRECTOR OF MATH Psoriatic arthritis from Last 3 Months or Most Recently Relevant to Health Maintenance Results * HEPATITIS C AB SCREEN RFLX NAAT QUANT (08/12/2020 12:44 PM DIRECTOR OF MATH) Hepatitis C Antibody Non-react peter Non-reac tive 08/12/2020 2:49 PM DIRECTOR OF MATH [facility] Comment:Hepatitis C Antibody screen indicates [...] Lab Venipuncture / Unknown 08/12/2020 12:44 PM DIRECTOR OF MATH 08/12/2020 2:04 PM DIRECTOR OF MATH Nancy Guillory MD LAB - CHEMISTRY ORDERABLES nal Result [facility] [address] [place] [address], [facility] [phone] from Last 3 Months or Most Recently Relevant to Health Maintenance Insurance Care Teams Electrophysiology Technician Relationship Specialty Start Date End Date Dom Jolley MD [address] [place] [address] [place] [phone] PCP - General Hospitalist 11/05/23
--- OUTSIDE RECORDS SUMMARY | 2025-03-28 15:44 | XMS_ITS | Clinical Summary ---
Author Organization [facility] Address [address] [place] [address] Care Team Providers Care Manager Retention Name Role Phone Dom Jolley MD Primary Care Provider [phone] Allergies Active Allergy Reactions Criticality Noted Date Comments Tramadol Other (See comments),Seizures High Reaction: SEIZURES, Medications naloxone (NARCAN) 4 mg/actuation spray,non-aeros ol Narcan 4 mg/actuation nasal spray Active methadone HCl (METHADONE ORAL) Take 250 mg by mouth knuckler before breakfast Keila Fan Counselor: Radhames 5 [...] 04/19/2023 Assessment & Plan (08/28/2023 9:13 AM ROD BUSTER): Given their past success the patient would [...] Immunizations Immunization Administration Dates Next Due INFLUENZA [id number] 07/09/2013 Influenza, Quadrivalent, Spl it, Preservative Free, [...] on file Legal Sex Female 9:52 AM ROD BUSTER Gender Identity Not on file Sexual Orientation Not on file 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 Not on file Not on file Not on file Obstetrics History Last Filed Vital Signs Vital Sign Reading Time Taken Comments Blood Pressure 143/97 08/28/2023 8:32 AM ROD BUSTER Pulse 83 08/28/2023 8:32 AM ROD BUSTER Temperature 36.2 C (97.1 F) 08/28/2023 8:32 AM ROD BUSTER Respiratory Rate 16 04/19/2023 11:3 0 AM CDT Oxygen Saturation 99% 08/28/2023 8:32 AM ROD BUSTER Inhaled Oxygen Concentration - - Weight 126.5 kg (278 lb 14.4 oz) 08/28/2023 8:32 AM ROD BUSTER Height 160 cm (5' 3) 08/28/2023 8:32 AM ROD BUSTER Body Mass Index 49.4 08/28/2023 8:32 AM ROD BUSTER Plan of Treatment Health Maintenance Due Date [...] HEPATITIS C ANTIBODY Routine 05/21/2018 9:39 AM ROD BUSTER Psoriatic arthritis (HCC) Encounter for long-term (current) use of medications Encounter for medication monitoring Morbid obesity with BMI of 40.0-44.9, adult (HCC) from Last 3 Months or Most Recently Relevant to Health Maintenance Results * Hepatitis C antibody (05/21/2018 9:39 AM ROD BUSTER) Hep C Ab Non-Reactiv e Non-Reactiv e [facility] Blood specimen (specimen) 05/21/2018 9:39 AM ROD BUSTER 05/21/2018 12:56 PM ROD BUSTER Narrative [facility] - 05/21/2018 2:00 PM ROD BUSTER Ling Gracia MD LAB MICROBIOLOGY - GENERAL ORDERABLES Final Result [facility] [address] Department [place] [address] from Last 3 Months or Most Recently Relevant to Health Maintenance Insurance [facility] Care Teams Manager Retention Relationship Specialty Start Date End Date Dom Jolley MD [address] GIBSON [address] [place] [address] PCP - General Family Medicine 04/19/23
[2025-03-28 15:46] VITALS: BP 164/114; PULSE 85; RESP 20; TEMP 36.8; O2SAT 100
[2025-03-28 16:03] LABS: EDUAAPPEAR Cloudy; EDUABILI Negative (Negative); EDUABLOOD 2+ (Negative); EDUACOLOR1 Yellow; EDUAGLUCOSE Negative (Negative); EDUAKETONE Negative (Negative); EDUALEUKO 1+ (Negative); EDUANITRATE Positive (Negative); EDUAPH 6.5; EDUAPROTEIN 2+ (Negative); EDUASPGRAVITY 1.030; EDUAUROBILI 1.0
--- NOTE | 2025-03-28 16:15 | ED.GENADULT ---
HPI - General Adult General Chief complaint: Urogenital-Female Stated complaint: poss UTI Source: patient Mode of arrival: ambulatory Limitations: no limitations History of Present Illness HPI narrative: Patient presents for evaluation of urinary symptoms. She was evaluated here on 03/18 for urinary symptoms. She was diagnosed with a urinary tract infection and given Macrobid. Urine culture grew out E coli, sensitive to Macrobid. She did take the entire course of medication. She states her symptoms did not improve. She reports urinary frequency, hesitancy, incomplete emptying, low back discomfort and some discomfort in the vaginal region. No fever, chills nausea, vomiting, vaginal bleeding or discharge. Related Data Home Medications ?Medication ?Instructions ?Recorded ?Confirmed ?Last Taken ?Type methadone .ROUTE 03/28/25 Unknown History Allergies Allergy/AdvReac Type Severity Reaction Status Date / Time tramadol Allergy Severe Siezure Verified 03/28/25 15:51 Review of Systems Review of Systems: CONSTITUTIONAL: Denies fever, chills, or sweats. EYES: Denies visual changes, redness, or discharge. ENT: Denies rhinorrhea, congestion, sore throat, or otalgia. CARDIOVASCULAR: Denies chest pain, palpitations, or edema. RESPIRATORY: Denies cough or dyspnea. GASTROINTESTINAL: Denies abdominal pain, nausea, vomiting, or diarrhea. GENITOURINARY: Reports urinary frequency, hesitancy, incomplete emptying, and vaginal discomfort. Denies vaginal bleeding or discharge. SKIN: Denies rash or itching. MUSCULOSKELETAL: Reports low back discomfort. Denies joint pain, or myalgia. NEUROLOGIC: Denies headache, numbness, dizziness, or weakness. PSYCHIATRIC: Denies anxiety or depression. FORMERLY [facility], 1928–1983 Past Medical History Medical History (Updated 03/28/25 @ 16:02 by BHAVIK Gifford, ANTONY) Anxiety Depression Psoriasis Rheumatoid arthritis HTN (hypertension) Surgical History Surgical History No significant past surgical history Family History Family History Mother Family history non-contributory Other Heart disease Hypertension Social History Social History Smoking packs per day: 0.5 Smoking cigarettes per day: 10.0 Smoking status: Current every day smoker Tobacco type: cigarettes Alcohol intake: never Substance use: never Living arrangements: with family Gender identity (if verbalized by the patient): Female Exam Narrative: GENERAL: Well-appearing, well-nourished, and in no acute distress. HEAD: Normocephalic, atraumatic. EYES: PERRLA and EOMI. ENT: Nares clear, no rhinorrhea or epistaxis. Mucous membranes moist. Oropharynx without tonsillar hypertrophy exudate or other lesions. Bilateral TMs pearly muro nonbulging NECK: Supple. No adenopathy or masses. No carotid bruits or JVD CHEST: Clear to auscultation. No respiratory distress. No wheezes rales or rhonchi HEART: Regular rate and rhythm. No murmur heard. Normal peripheral pulses. ABDOMEN: Soft, nontender, nondistended, normal active bowel sounds. EXTREMITIES: Normal range of motion. No edema. SKIN: Warm, dry, no rash. NEURO: No focal deficits. Alert and oriented x3. PSYCH: Normal mood and affect. Course Course Emergency Course: This is a 40 year old female who presented for evaluation of urinary symptoms. She has nitrite positive urine today. I reviewed her urine culture which grew out E coli, susceptible to multiple agents including Augmentin. Will start Augmentin. Send urine for culture. Increase hydration. Follow up with primary provider. Go to the ER for worsening symptoms. Patient in agreement with plan of care. Level of Care: Express Care Visit Vital Signs Vital signs: Vital Signs Temperature 36.8 C 03/28/25 15:46 Pulse Rate 85 03/28/25 15:46 Respiratory Rate 03/28/25 15:46 Blood Pressure 164/114 H 03/28/25 15:46 Pulse Oximetry 100 03/28/25 15:46 Oxygen Delivery Room Air 03/28/25 15:46 Temperature 36.8 C 03/28/25 15:46 Pulse Rate 85 03/28/25 15:46 Respiratory Rate 03/28/25 15:46 Blood Pressure 164/114 H 03/28/25 15:46 Pulse Oximetry 100 03/28/25 15:46 Oxygen Delivery Room Air 03/28/25 15:46 Medical Decision Making Vital Signs Vital Signs: Vital Signs Temperature 36.8 C 03/28/25 15:46 Pulse Rate 85 03/28/25 15:46 Respiratory Rate 03/28/25 15:46 Blood Pressure 164/114 H 03/28/25 15:46 Pulse Oximetry 100 03/28/25 15:46 Oxygen Delivery Room Air 03/28/25 15:46 Temperature 36.8 C 03/28/25 15:46 Pulse Rate 85 03/28/25 15:46 Respiratory Rate 20 03/28/25 15:46 Blood Pressure 164/114 H 03/28/25 15:46 Pulse Oximetry 100 03/28/25 15:46 Oxygen Delivery Room Air 03/28/25 15:46 Lab Data Labs: Lab Results 03/28/25 Range/Units 15:46 POC Urine Color Yellow POC Urine Clarity Cloudy POC Urine pH 6.5 POC Ur Specif [place] 1.030 POC Urine Protein 2+ (Negative) POC Ur Glucose (UA) Negative (Negative) POC Urine Ketones Negative (Negative) POC Urine Blood 2+ (Negative) POC Urine Nitrite Positive (Negative) POC Urine Bilirubin Negative (Negative) POC Urine Urobilinogen 1.0 POC U Leukocyte Esteras 1+ (Negative) Discharge Plan Discharge Clinical Impression: UTI (urinary tract infection) Patient Disposition: Home Condition: Stable Instructions: Antibiotic Form, Urinary Tract Infection in Women (DC) Patient Language: Gren[place] Prescriptions: New amoxicillin-pot clavulanate 875-125 mg tablet 1 tablet PO Q12H Qty: 14 0RF No Action methadone .ROUTE Follow-up/Referrals: Dorcas,BHAVIK Mota [Primary Care Provider, Unknown] Time of Disposition: 16:03
== END 2025-03-28 16:05 | disposition home or self-care (01) ==
PROVIDERS: Emergency Provider Nurse Practitioner; PCP Nurse Practitioner Family
DX: N39.0 Urinary tract infection, site not specified (principal); F17.210 Nicotine dependence, cigarettes, uncomplicated; I10 Essential (primary) hypertension; M06.9 Rheumatoid arthritis, unspecified; L40.9 Psoriasis, unspecified
CPT/HCPCS: 81003; 87077; 87086; 87186; 99213; G0463